=== PATIENT | female | born 1975 | race Asian ===

== ENCOUNTER 2016-09-22 16:51 | Emergency (ER) | payer MEDICAID ==
[~2016-09-22] VITALS: Ht 152.4 cm; Wt 71.6 kg
[~2016-09-22 16:51] MED LIST: ARIP10TA13 PO; OXYC-302 PO
[2016-09-22 18:15] LABS: ASPARTATE AMINO TRANSFERASE 13 U/L (15-37); BLOOD UREA NITROGEN 7 mg/dL (7-18)
[2016-09-22] MEDS ORDERED: MIRT7.5T8 PO (18:15)
[2016-09-22] MEDS ORDERED: TRAZ100T15 PO (18:15)
[2016-09-22] MEDS ORDERED: KETOROLAC 30 MG/1 ML ONE (21:19)
[2016-09-22 21:23] VITALS: BP 120/70
[2016-09-22] MEDS ORDERED: KETOROLAC 30 MG/1 ML IM ONE (21:30)
== END 2016-09-22 21:51 | disposition home or self-care (01) ==
LOC: ED 21:03
DX: N30.01 Acute cystitis with hematuria (principal); R31.29 Other microscopic hematuria; G43.909 Migraine, unspecified, not intractable, without status migrainosus; R73.9 Hyperglycemia, unspecified; Z90.49 Acquired absence of other specified parts of digestive tract; Z90.710 Acquired absence of both cervix and uterus
CPT/HCPCS: 36415; 76830; 80053; 81001; 85025; 87086; 96372; 99285; J1885

== ENCOUNTER 2016-12-22 17:20 | Emergency (ER) | payer MEDICAID ==
[~2016-12-22] VITALS: Ht 152.4 cm; Wt 69.0 kg
[~2016-12-22 17:20] MED LIST changes: +MIRT7.5T8 PO; +TRAZ100T15 PO
[2016-12-22 17:25] VITALS: BP 137/92
[2016-12-22] MEDS ORDERED: FLUORESCEIN OPHTHALMIC 1 MG STRIP EACHEYE ONE (17:30)
[2016-12-22] MEDS ORDERED: PLEASE ENTER HEIGHT AND WEIGHT MC SCH (17:30)
[2016-12-22] MEDS ORDERED: PROPARACAINE OPHTH 0.5%, 15ML EACHEYE ONE (17:30)
[2016-12-22] MEDS ORDERED: PROPARACAINE OPHTH 0.5%, 15ML ONE (17:40)
[2016-12-22] MEDS ORDERED: FLUORESCEIN OPHTHALMIC 1 MG STRIP ONE (17:40)
== END 2016-12-22 18:26 | disposition home or self-care (01) ==
LOC: ED 18:20
DX: H10.231 Serous conjunctivitis, except viral, right eye (principal); S05.01XA Injury of conjunctiva and corneal abrasion without foreign body, right eye, initial encounter; X58.XXXA Exposure to other specified factors, initial encounter; Y93.89 Activity, other specified; Y99.8 Other external cause status; Y92.89 Other specified places as the place of occurrence of the external cause
CPT/HCPCS: 99283

== ENCOUNTER 2017-08-12 18:53 | Emergency (ER) | payer MEDICAID, OTHER ==
[~2017-08-12] VITALS: Ht 152.4 cm; Wt 74.3 kg
[~2017-08-12 18:53] MED LIST changes: -ARIP10TA13 PO; +ARIP10TA33 PO
[2017-08-12 18:59] VITALS: BP 131/86
[2017-08-12] MEDS ORDERED: IBUPROFEN 200 MG TABLET ONE (19:49)
[2017-08-12] MEDS ORDERED: IBUPROFEN 200 MG TABLET PO ONE (20:00)
[2017-08-12 20:14] LABS: MICROSCOPIC INDICATED
[2017-08-12 20:23] LABS: CULTURE INDICATED? NO
== END 2017-08-12 21:40 | disposition home or self-care (01) ==
LOC: ED 21:06
DX: R10.2 Pelvic and perineal pain (principal); J02.9 Acute pharyngitis, unspecified; R73.9 Hyperglycemia, unspecified; Z90.710 Acquired absence of both cervix and uterus; Z90.721 Acquired absence of ovaries, unilateral
CPT/HCPCS: 76830; 81001; 99285

== ENCOUNTER 2017-10-14 01:23 | Emergency (ER) | payer OTHER ==
[~2017-10-14] VITALS: Ht 152.4 cm; Wt 73.1 kg
[2017-10-14] MEDS ORDERED: PROCHLORPERAZINE 5 MG/ML, 2ML ONE (02:17)
[2017-10-14] MEDS ORDERED: DIPHENHYDRAMINE 50 MG/ML, 1ML ONE (02:17)
[2017-10-14] MEDS ORDERED: DIPHENHYDRAMINE 50 MG/ML, 1ML IVPush ONE (02:30)
[2017-10-14] MEDS ORDERED: SODIUM CHLORIDE 0.9% 1,000ML IVBOLUS ONE (02:30)
[2017-10-14] MEDS ORDERED: SODIUM CHLORIDE FLUSH 10ML SYR IVF ONE (02:30)
[2017-10-14] MEDS ORDERED: PROCHLORPERAZINE 5 MG/ML, 2ML IVPush ONE (02:30)
[2017-10-14] MEDS ORDERED: KETOROLAC 30 MG/1 ML ONE (04:23)
[2017-10-14] MEDS ORDERED: KETOROLAC 30 MG/1 ML IVPush ONE (04:30)
[2017-10-14 04:32] VITALS: BP 99/55
== END 2017-10-14 04:44 | disposition home or self-care (01) ==
LOC: ED 02:40
DX: R51 Headache (principal); R11.2 Nausea with vomiting, unspecified; R73.9 Hyperglycemia, unspecified
CPT/HCPCS: 70450; 93005; 96361; 96374; 96375; 99285; J0780; J1200; J1885; J7030

== ENCOUNTER 2017-10-18 18:25 | Emergency (ER) | payer OTHER ==
[~2017-10-18] VITALS: Ht 180.3 cm; Wt 72.8 kg
[2017-10-18 19:57] VITALS: BP 128/63
== END 2017-10-18 20:00 | disposition home or self-care (01) ==
LOC: ED 19:54
DX: R06.00 Dyspnea, unspecified (principal); R05 Cough; F32.9 Major depressive disorder, single episode, unspecified; Z90.49 Acquired absence of other specified parts of digestive tract
CPT/HCPCS: 71046; 93005; 99284

== ENCOUNTER 2017-12-19 20:24 | Emergency (ER) | payer OTHER ==
[2017-12-19] MEDS ORDERED: NITROGLYCERIN SINGLE TAB 0.4 MG SL ONE (20:49)
[2017-12-19] MEDS ORDERED: ASPIRIN 81 MG TABLET CHEW ONE (20:50)
[2017-12-19 20:55] LABS: BASOPHILS # (AUTO) 0.02 x10^3/uL (0-0.1); BASOPHILS % (AUTO) 0 % (0-1); EOSINOPHILS % (AUTO) 2 % (1-7); LYMPHOCYTES # (AUTO) 2.24 x10^3/uL (1-3.4); LYMPHOCYTES % (AUTO) 35 % (22-44); MD NO; MEAN CORPUSCULAR HEMOGLOBIN 31.6 pg (27.0-34.8); MEAN CORPUSCULAR HGB CONC 34.6 g/dL (32.4-35.8); MEAN CORPUSCULAR VOLUME 91.2 fL (80-100); MEAN PLATELET VOLUME 7.6 fL (7.4-10.4); MONOCYTES # (AUTO) 0.41 x10^3/uL (0.2-0.8); MONOCYTES % (AUTO) 7 % (2-9); NEUTROPHILS # (AUTO) 3.55 x10^3/uL (1.8-6.8); NEUTROPHILS % (AUTO) 56 % (42-75); PLATELET COUNT 255 x10^3/uL (130-400); RED BLOOD COUNT 4.56 x10^6/uL (3.82-5.3); RED CELL DISTRIBUTION WIDTH 12.2 % (9.6-15.2)
[2017-12-19] MEDS ORDERED: ASPIRIN 81 MG TABLET CHEW PO ONE (21:00)
[2017-12-19] MEDS ORDERED: PLEASE ENTER WEIGHT MC SCH (21:00)
[2017-12-19] MEDS ORDERED: SODIUM CHLORIDE FLUSH 10ML SYR IVF ONE (21:00)
[2017-12-19] MEDS ORDERED: NITROGLYCERIN SINGLE TAB 0.4 MG SL PRN (21:00)
[2017-12-19 21:04] LABS: ALANINE AMINOTRANSFERASE 32 U/L (12-78); ALBUMIN 3.7 g/dL (3.4-5.0); ANION GAP 7 mmol/L (5-15); CALCIUM 8.6 mg/dL (8.5-10.1); CHLORIDE 112 mmol/L (98-107); CREATININE 0.79 mg/dL (0.55-1.02)
[2017-12-19 21:08] LABS: INTERNATIONAL NORMALIZED RATIO 0.93 (0.93-1.1); PROTHROMBIN TIME 9.7 Seconds (9.6-11.5)
[2017-12-19 21:09] LABS: ALKALINE PHOSPHATASE 43 U/L (45-117); BILIRUBIN,TOTAL 0.5 mg/dL (0.2-1.0); TOTAL PROTEIN 7.1 g/dL (6.4-8.2); TROPONIN I < 0.015 ng/mL (0.000-0.045)
[2017-12-19 23:21] VITALS: BP 126/72
[2017-12-19 23:43] LABS: TROPONIN I < 0.015 ng/mL (0.000-0.045)
[2017-12-19] MEDS ORDERED: ACETAMINOPHEN 500 MG TABLET ONE (23:54)
[2017-12-19] MEDS ORDERED: MAALOX/HYOSCYAMINE/LIDOCAINE 45 ML BTL ONE (23:54)
[2017-12-20] MEDS ORDERED: ACETAMINOPHEN 500 MG TABLET PO ONE
[2017-12-20] MEDS ORDERED: MAALOX/HYOSCYAMINE/LIDOCAINE 45 ML BTL PO ONE
== END 2017-12-20 00:07 | disposition home or self-care (01) ==
LOC: ED 22:54
DX: R07.89 Other chest pain (principal); F32.9 Major depressive disorder, single episode, unspecified
CPT/HCPCS: 36415; 71045; 80053; 83690; 84484; 85025; 85610; 85730; 93005; 99285

== ENCOUNTER 2018-04-23 21:14 | Emergency (ER) | payer OTHER ==
[~2018-04-23] VITALS: Ht 152.4 cm; Wt 71.8 kg
[~2018-04-23 21:14] MED LIST changes: +TRAZ-137 PO; -TRAZ100T15 PO
[2018-04-23 21:18] VITALS: BP 131/70
[2018-04-23] MEDS ORDERED: MIRT7.5T8 PO (22:05)
[2018-04-23 22:24] LABS: MICROSCOPIC AUTO
[2018-04-23 22:25] LABS: BASOPHILS # (AUTO) 0.02 x10^3/uL (0-0.1); BASOPHILS % (AUTO) 0 % (0-1); EOSINOPHILS # (AUTO) 0.18 x10^3/uL (0-0.4); EOSINOPHILS % (AUTO) 3 % (1-7); LYMPHOCYTES # (AUTO) 2.31 x10^3/uL (1-3.4); LYMPHOCYTES % (AUTO) 36 % (22-44); MD NO; MEAN CORPUSCULAR HEMOGLOBIN 31.5 pg (27.0-34.8); MEAN CORPUSCULAR HGB CONC 34.6 g/dL (32.4-35.8); MEAN CORPUSCULAR VOLUME 90.8 fL (80-100); MEAN PLATELET VOLUME 7.6 fL (7.4-10.4); MONOCYTES # (AUTO) 0.41 x10^3/uL (0.2-0.8); MONOCYTES % (AUTO) 6 % (2-9); NEUTROPHILS # (AUTO) 3.57 x10^3/uL (1.8-6.8); NEUTROPHILS % (AUTO) 55 % (42-75); PLATELET COUNT 249 x10^3/uL (130-400); RED BLOOD COUNT 4.15 x10^6/uL (3.82-5.3); RED CELL DISTRIBUTION WIDTH 12.4 % (9.6-15.2)
[2018-04-23 22:27] LABS: CULTURE INDICATED? YES
[2018-04-23 22:36] LABS: ALANINE AMINOTRANSFERASE 30 U/L (12-78); ALBUMIN 3.4 g/dL (3.4-5.0); ANION GAP 7 mmol/L (5-15); CALCIUM 8.3 mg/dL (8.5-10.1); CHLORIDE 110 mmol/L (98-107); CREATININE 0.95 mg/dL (0.55-1.02)
[2018-04-23 22:38] LABS: ALKALINE PHOSPHATASE 37 U/L (45-117); BILIRUBIN,TOTAL 0.3 mg/dL (0.2-1.0); TOTAL PROTEIN 6.3 g/dL (6.4-8.2)
== END 2018-04-23 23:08 | disposition home or self-care (01) ==
LOC: ED 22:45
DX: A09 Infectious gastroenteritis and colitis, unspecified (principal); Z90.49 Acquired absence of other specified parts of digestive tract; Z90.710 Acquired absence of both cervix and uterus; F32.9 Major depressive disorder, single episode, unspecified
CPT/HCPCS: 36415; 76830; 80053; 81001; 83690; 85025; 87086; 99284

== ENCOUNTER 2018-08-07 19:47 | Emergency (ER) | payer OTHER ==
[~2018-08-07] VITALS: Ht 152.4 cm; Wt 69.1 kg
[2018-08-07 21:32] LABS: BASOPHILS # (AUTO) 0.03 x10^3/uL (0-0.1); BASOPHILS % (AUTO) 0 % (0-1); EOSINOPHILS # (AUTO) 0.03 x10^3/uL (0-0.4); EOSINOPHILS % (AUTO) 1 % (1-7); LYMPHOCYTES # (AUTO) 2.22 x10^3/uL (1-3.4); LYMPHOCYTES % (AUTO) 35 % (22-44); MD NO; MEAN CORPUSCULAR HGB CONC 34.6 g/dL (32.4-35.8); MEAN CORPUSCULAR VOLUME 89.7 fL (80-100); MEAN PLATELET VOLUME 7.3 fL (7.4-10.4); MONOCYTES # (AUTO) 0.29 x10^3/uL (0.2-0.8); MONOCYTES % (AUTO) 5 % (2-9); NEUTROPHILS # (AUTO) 3.71 x10^3/uL (1.8-6.8); NEUTROPHILS % (AUTO) 59 % (42-75); PLATELET COUNT 282 x10^3/uL (130-400); RED BLOOD COUNT 4.54 x10^6/uL (3.82-5.3); RED CELL DISTRIBUTION WIDTH 12.4 % (9.6-15.2)
[2018-08-07 21:44] LABS: ALANINE AMINOTRANSFERASE 26 U/L (12-78); ALBUMIN 3.9 g/dL (3.4-5.0); ANION GAP 7 mmol/L (5-15); CALCIUM 8.4 mg/dL (8.5-10.1); CHLORIDE 111 mmol/L (98-107); CREATININE 0.72 mg/dL (0.55-1.02)
[2018-08-07 21:46] LABS: ALKALINE PHOSPHATASE 36 U/L (45-117); BILIRUBIN,TOTAL 0.7 mg/dL (0.2-1.0)
--- NOTE | 2018-08-08 00:05 | NUR ---
pt to room from lobby
[2018-08-08] MEDS ORDERED: MECLIZINE CHEWABLE 25 MG TAB ONE (00:21)
[2018-08-08] MEDS ORDERED: ONDANSETRON ODT 4 MG ONE (00:21)
[2018-08-08] MEDS ORDERED: ONDANSETRON ODT 4 MG PO ONE (00:30)
[2018-08-08] MEDS ORDERED: MECLIZINE CHEWABLE 25 MG TAB PO ONE (00:30)
--- NOTE | 2018-08-08 00:45 | NUR ---
BREAK RN: PT MEDICATED WITH ORDERED MEDS. PT RESTING CALMLY IN BED AT THIS TIME. BP CUFF APPLIED. CALL LIGHT WITHIN REACH.
--- NOTE | 2018-08-08 00:58 | NUR ---
ASSUMED CARE OF PATIENT. REPORT GIVEN FROM CHERISE DRUMMOND
[2018-08-08 01:21] VITALS: BP 120/78
== END 2018-08-08 01:26 | disposition home or self-care (01) ==
LOC: ED 23:59
DX: R42 Dizziness and giddiness (principal); R11.2 Nausea with vomiting, unspecified; F32.9 Major depressive disorder, single episode, unspecified
CPT/HCPCS: 36415; 80053; 83690; 85025; 93005; 99284; Q0162

== ENCOUNTER 2018-09-08 16:34 | Emergency (ER) | payer OTHER ==
[~2018-09-08] VITALS: Ht 152.4 cm; Wt 69.0 kg
--- NOTE | 2018-09-08 16:55 | NUR ---
CONTACT WITH PT, LAB IN TO DRAW BLOOD. PT AMB TO BR, GAIT STEADY, TO ATTEMPT TO PROVIDE URINE SPECIMAN.
--- NOTE | 2018-09-08 17:04 | NUR ---
PT RETURN TO ROOM, 43 YR OLD FEMALE HERE WITH C/O "ABD PAIN, RIGHT SIDE LOWER. BEGAN ON TUESDAY" DENIES N/V/D.
[2018-09-08 17:06] LABS: BASOPHILS # (AUTO) 0.02 x10^3/uL (0-0.1); BASOPHILS % (AUTO) 0 % (0-1); EOSINOPHILS # (AUTO) 0.05 x10^3/uL (0-0.4); EOSINOPHILS % (AUTO) 1 % (1-7); LYMPHOCYTES # (AUTO) 1.82 x10^3/uL (1-3.4); LYMPHOCYTES % (AUTO) 35 % (22-44); MD NO; MEAN CORPUSCULAR HEMOGLOBIN 31.2 pg (27.0-34.8); MEAN CORPUSCULAR HGB CONC 34.7 g/dL (32.4-35.8); MEAN CORPUSCULAR VOLUME 89.8 fL (80-100); MEAN PLATELET VOLUME 7.7 fL (7.4-10.4); MONOCYTES # (AUTO) 0.26 x10^3/uL (0.2-0.8); MONOCYTES % (AUTO) 5 % (2-9); NEUTROPHILS # (AUTO) 3.07 x10^3/uL (1.8-6.8); NEUTROPHILS % (AUTO) 59 % (42-75); PLATELET COUNT 247 x10^3/uL (130-400); RED BLOOD COUNT 4.35 x10^6/uL (3.82-5.3); RED CELL DISTRIBUTION WIDTH 12.3 % (9.6-15.2)
[2018-09-08 17:08] VITALS: BP_DIAS 68
--- NOTE | 2018-09-08 17:11 | NUR ---
PT UPDATED ON POC. UNDERSTANDING VERBALIZED. NO NEEDS EXPRESSED AT THIS TIME.
[2018-09-08 17:12] LABS: ALANINE AMINOTRANSFERASE 26 U/L (12-78); ALBUMIN 3.7 g/dL (3.4-5.0); ANION GAP 5 mmol/L (5-15); CALCIUM 8.2 mg/dL (8.5-10.1); CHLORIDE 113 mmol/L (98-107); CREATININE 0.79 mg/dL (0.55-1.02)
[2018-09-08 17:14] LABS: ALKALINE PHOSPHATASE 36 U/L (45-117); BILIRUBIN,TOTAL 0.7 mg/dL (0.2-1.0); TOTAL PROTEIN 6.6 g/dL (6.4-8.2)
[2018-09-08 17:21] LABS: MICROSCOPIC AUTO
[2018-09-08 17:22] LABS: CULTURE INDICATED? NO
--- NOTE | 2018-09-08 17:56 | NUR ---
PT IN RADIOLOGY.
[2018-09-08] MEDS ORDERED: CIPROFLOXACIN OPHTH SOLN 0.3%, 5ML LEFTEYE ONE (18:00)
--- NOTE | 2018-09-08 18:01 | NUR ---
PT RETURN FROM RADIOLOGY. NO CHANGE IN CONDITION NOTED. WAITING FOR TEST RESULTS. NO NEEDS EXPRESSED AT THIS TIME.
[2018-09-08 18:02] VITALS: BP_SYST 120
--- NOTE | 2018-09-08 18:49 | NUR ---
REPORT TO FLORINA LUONG
== END 2018-09-08 19:03 | disposition home or self-care (01) ==
LOC: ED 17:19
DX: R10.31 Right lower quadrant pain (principal); F32.9 Major depressive disorder, single episode, unspecified; Z90.710 Acquired absence of both cervix and uterus; Z90.89 Acquired absence of other organs; Z90.721 Acquired absence of ovaries, unilateral
CPT/HCPCS: 36415; 74176; 80053; 81001; 85025; 99284

== ENCOUNTER 2019-05-20 21:40 | Emergency (ER) | payer OTHER ==
[~2019-05-20] VITALS: Ht 154.9 cm; Wt 71.6 kg
[2019-05-20 22:30] LABS: BASOPHILS # (AUTO) 0.02 x10^3/uL (0-0.1); BASOPHILS % (AUTO) 0 % (0-1); EOSINOPHILS % (AUTO) 2 % (1-7); LYMPHOCYTES # (AUTO) 1.96 x10^3/uL (1-3.4); LYMPHOCYTES % (AUTO) 31 % (22-44); MD NO; MEAN CORPUSCULAR HEMOGLOBIN 31.9 pg (27.0-34.8); MEAN CORPUSCULAR HGB CONC 33.6 g/dL (32.4-35.8); MEAN PLATELET VOLUME 7.4 fL (7.4-10.4); MONOCYTES # (AUTO) 0.56 x10^3/uL (0.2-0.8); MONOCYTES % (AUTO) 9 % (2-9); NEUTROPHILS # (AUTO) 3.63 x10^3/uL (1.8-6.8); NEUTROPHILS % (AUTO) 58 % (42-75); PLATELET COUNT 260 x10^3/uL (130-400); RED BLOOD COUNT 4.28 x10^6/uL (3.82-5.3); RED CELL DISTRIBUTION WIDTH 12.7 % (9.6-15.2)
--- NOTE | 2019-05-20 22:40 | NUR ---
THIS IS A 44 YO FEMALE COMING IN FOR SOB AND "WEAK AND TINGLY IN MY MEGS" STARTING AT 5PM TODAY. PATIENT DENIES CP, BUT STATES "WITH DEEP BREATHING IT KIND OF PINCHES". PATIENT DENIES MEDICAL HX. EKG DONE IN TRIAGE. PATIENT SPEAKING IN FULL SENTENCES, DOES NOT APPEAR IN ACUTE DISTRESS, SKIN NORMAL COLOR FOR ETHNICITY. PLACED ON HAIRCUTTER, NSR NOTED, CONTINUOUS SPO2 AT 97%, CYCLE BP Q HR. APPEARS TO BE HYPERTENSIVE. CALL LIGHT IN REACH, DENIES NEEDS AT THIS TIME.
[2019-05-20 22:45] LABS: ALBUMIN 3.5 g/dL (3.4-5.0); ANION GAP 7 mmol/L (5-15); CALCIUM 8.1 mg/dL (8.5-10.1); CHLORIDE 111 mmol/L (98-107)
[2019-05-20 22:51] LABS: TROPONIN I < 0.015 ng/mL (0.000-0.045)
--- NOTE | 2019-05-20 22:53 | NUR ---
PATIENT RESTING ON GURNEY, RESPIRATIONS EVEN AND UNLABORED. VSS, NAD, FAMILY IN ROOM. CALL LIGHT IN REACH, DENIES NEEDS AT THIS TIME.
[2019-05-20 22:57] VITALS: BP 156/95
== END 2019-05-21 00:01 | disposition home or self-care (01) ==
LOC: ED 22:23
DX: R42 Dizziness and giddiness (principal); R53.1 Weakness; R06.00 Dyspnea, unspecified; R20.2 Paresthesia of skin; Z90.89 Acquired absence of other organs; Z90.710 Acquired absence of both cervix and uterus; Z90.721 Acquired absence of ovaries, unilateral
CPT/HCPCS: 36415; 71045; 80048; 82040; 83735; 84443; 84484; 84703; 85025; 93005; 99284

== ENCOUNTER 2019-05-21 20:51 | Emergency (ER) | payer SELFPAY ==
[~2019-05-21] VITALS: Ht 152.4 cm; Wt 71.7 kg
[2019-05-21 22:17] LABS: BASOPHILS # (AUTO) 0.02 x10^3/uL (0-0.1); BASOPHILS % (AUTO) 1 % (0-1); EOSINOPHILS # (AUTO) 0.07 x10^3/uL (0-0.4); EOSINOPHILS % (AUTO) 1 % (1-7); LYMPHOCYTES % (AUTO) 40 % (22-44); MD NO; MEAN CORPUSCULAR HEMOGLOBIN 32.1 pg (27.0-34.8); MEAN CORPUSCULAR HGB CONC 34.1 g/dL (32.4-35.8); MEAN CORPUSCULAR VOLUME 94.3 fL (80-100); MEAN PLATELET VOLUME 7.4 fL (7.4-10.4); MONOCYTES # (AUTO) 0.35 x10^3/uL (0.2-0.8); MONOCYTES % (AUTO) 7 % (2-9); NEUTROPHILS # (AUTO) 2.44 x10^3/uL (1.8-6.8); NEUTROPHILS % (AUTO) 51 % (42-75); PLATELET COUNT 261 x10^3/uL (130-400); RED BLOOD COUNT 4.15 x10^6/uL (3.82-5.3); RED CELL DISTRIBUTION WIDTH 12.3 % (9.6-15.2)
[2019-05-21 22:26] LABS: ALBUMIN 3.4 g/dL (3.4-5.0); ANION GAP 8 mmol/L (5-15); CHLORIDE 111 mmol/L (98-107); CREATININE 1.01 mg/dL (0.55-1.02)
[2019-05-21] MEDS ORDERED: CALCIUM CARBONATE 500 MG TAB.CHEW PO ONE (23:00)
[2019-05-21] MEDS ORDERED: CALCIUM CARBONATE 500 MG TAB.CHEW ONE (23:07)
[2019-05-21 23:23] VITALS: BP 136/78
== END 2019-05-21 23:41 | disposition home or self-care (01) ==
LOC: ED 23:05
DX: E83.51 Hypocalcemia (principal); R20.2 Paresthesia of skin; Z90.710 Acquired absence of both cervix and uterus; Z90.721 Acquired absence of ovaries, unilateral; Z90.49 Acquired absence of other specified parts of digestive tract
CPT/HCPCS: 36415; 80048; 82040; 84436; 84443; 85025; 93005; 99284

== ENCOUNTER 2019-07-02 15:11 | Emergency (ER) | payer OTHER ==
[~2019-07-02] VITALS: Ht 152.4 cm; Wt 72.6 kg
[2019-07-02] MEDS ORDERED: SODIUM CHLORIDE FLUSH 10ML SYR IVF ONE (16:00)
--- NOTE | 2019-07-02 18:26 | NUR ---
RECHECK VSS STABLE AT 182
--- NOTE | 2019-07-02 18:51 | NUR ---
pt to room from lobby
--- NOTE | 2019-07-02 19:11 | NUR ---
ASSUMED CARE OF PATIENT. PATIENT REPORTS BILATERAL ABD PAIN AND FLANK PAIN. PT ALSO REPORTS SHE WAS URINATING PINK TWO DAYS AGO. FAMILY AT BEDSIDE. CALL LIGHT IN PLACE. WILL CONTINUE TO MONITOR.
[2019-07-02 19:19] LABS: CULTURE INDICATED? YES; MICROSCOPIC INDICATED
--- NOTE | 2019-07-02 19:49 | NUR ---
PT RESTING IN ROOM. VS STABLE. CALL LIGHT IN PLACE. WILL CONTINUE TO MONITOR.
[2019-07-02] MEDS ORDERED: MORPHINE SULFATE 4 MG/ML, 1ML ONE (19:56)
[2019-07-02] MEDS ORDERED: ONDANSETRON 2MG/ML, 2ML ONE (19:56)
[2019-07-02] MEDS ORDERED: MORPHINE SULFATE 4 MG/ML, 1ML IVPush ONE (20:00)
[2019-07-02] MEDS ORDERED: ONDANSETRON 2MG/ML, 2ML IVPush ONE (20:00)
--- NOTE | 2019-07-02 20:03 | NUR ---
BRENT RN ASSISTING PRIMARY CHERISE MALONE WITH MEDICATION ADMIN ONLY. PT MEDICATED NOTED PER MD ORDER IN [facility] FOR 03/08 "RIGHT OVARY AND LOW BACK PAIN." PT RESTING IN POSITION OF COMFORT. DENIES NEED TO USE RESTROOM. FAMILY AT BEDSIDE. CALL LIGHT IN REACH. VSS. AWAITING CT. REPORT AND CARE BACK TO PRIMARY CHERISE MALONE.
--- NOTE | 2019-07-02 20:44 | NUR ---
pt resting in room. no acute distress noted. will continue to monitor.
[2019-07-02 20:56] LABS: BASOPHILS # (AUTO) 0.01 x10^3/uL (0-0.1); BASOPHILS % (AUTO) 0 % (0-1); EOSINOPHILS # (AUTO) 0.05 x10^3/uL (0-0.4); EOSINOPHILS % (AUTO) 1 % (1-7); LYMPHOCYTES # (AUTO) 1.77 x10^3/uL (1-3.4); LYMPHOCYTES % (AUTO) 28 % (22-44); MD NO; MEAN CORPUSCULAR HEMOGLOBIN 31.4 pg (27.0-34.8); MEAN CORPUSCULAR HGB CONC 34.1 g/dL (32.4-35.8); MEAN CORPUSCULAR VOLUME 92.1 fL (80-100); MEAN PLATELET VOLUME 7.6 fL (7.4-10.4); MONOCYTES # (AUTO) 0.47 x10^3/uL (0.2-0.8); MONOCYTES % (AUTO) 7 % (2-9); NEUTROPHILS # (AUTO) 4.12 x10^3/uL (1.8-6.8); NEUTROPHILS % (AUTO) 64 % (42-75); PLATELET COUNT 262 x10^3/uL (130-400); RED BLOOD COUNT 4.34 x10^6/uL (3.82-5.3); RED CELL DISTRIBUTION WIDTH 12.5 % (9.6-15.2)
[2019-07-02 21:02] LABS: ALBUMIN 3.5 g/dL (3.4-5.0); ANION GAP 7 mmol/L (5-15); CALCIUM 8.1 mg/dL (8.5-10.1); CHLORIDE 110 mmol/L (98-107); CREATININE 0.68 mg/dL (0.55-1.02)
--- NOTE | 2019-07-02 21:14 | NUR ---
REPORT RECEIVED, POC DISCUSSED, CARE ASSUMED.
--- NOTE | 2019-07-02 21:18 | NUR ---
PT UP FOR RE-EVALUATION.
[2019-07-02 21:51] VITALS: BP 134/88
--- NOTE | 2019-07-02 21:51 | NUR ---
PT DC'D HOME WITH RX X 2 AND UNDERSTANDING OF INSTRUCTIONS. PT AND FAMILY MEMBER TO DC DESK, PT GAIT STEADY.
== END 2019-07-02 21:54 | disposition home or self-care (01) ==
LOC: ED 21:47
DX: N30.01 Acute cystitis with hematuria (principal); R10.31 Right lower quadrant pain; R11.0 Nausea; G43.909 Migraine, unspecified, not intractable, without status migrainosus; Z90.49 Acquired absence of other specified parts of digestive tract; Z90.710 Acquired absence of both cervix and uterus
CPT/HCPCS: 36415; 74176; 80048; 81001; 81025; 82040; 85025; 87077; 87086; 96374; 96375; 99284; J2270; J2405; 87186

== ENCOUNTER 2019-11-25 16:41 | Emergency (ER) | payer OTHER, SELFPAY ==
[~2019-11-25] VITALS: Ht 152.4 cm; Wt 78.6 kg
[~2019-11-25 16:41] MED LIST changes: -TRAZ-137 PO; +TRAZ-175 PO
--- NOTE | 2019-11-25 17:13 | NUR ---
IN ROOM FOR ED EVAL.
[2019-11-25] MEDS ORDERED: ACETAMINOPHEN 500 MG TABLET PO ONE (17:30)
[2019-11-25 17:46] LABS: BASOPHILS # (AUTO) 0.02 x10^3/uL (0-0.1); BASOPHILS % (AUTO) 0 % (0-1); EOSINOPHILS % (AUTO) 0 % (1-7); LYMPHOCYTES # (AUTO) 0.74 x10^3/uL (1-3.4); LYMPHOCYTES % (AUTO) 18 % (22-44); MD NO; MEAN CORPUSCULAR HEMOGLOBIN 31.2 pg (27.0-34.8); MEAN CORPUSCULAR HGB CONC 34.6 g/dL (32.4-35.8); MEAN PLATELET VOLUME 7.5 fL (7.4-10.4); MONOCYTES # (AUTO) 0.39 x10^3/uL (0.2-0.8); MONOCYTES % (AUTO) 9 % (2-9); NEUTROPHILS # (AUTO) 3.06 x10^3/uL (1.8-6.8); NEUTROPHILS % (AUTO) 73 % (42-75); PLATELET COUNT 207 x10^3/uL (130-400); RED BLOOD COUNT 4.52 x10^6/uL (3.82-5.3); RED CELL DISTRIBUTION WIDTH 12.2 % (9.6-15.2)
[2019-11-25] MEDS ORDERED: ACETAMINOPHEN 500 MG TABLET ONE (17:54)
[2019-11-25 17:55] LABS: ALANINE AMINOTRANSFERASE 49 U/L (12-78); ANION GAP 8 mmol/L (5-15); CALCIUM 7.9 mg/dL (8.5-10.1); CHLORIDE 109 mmol/L (98-107); CREATININE 0.69 mg/dL (0.55-1.02)
[2019-11-25 18:00] LABS: ALKALINE PHOSPHATASE 51 U/L (45-117); BILIRUBIN,TOTAL 0.5 mg/dL (0.2-1.0); TROPONIN I < 0.015 ng/mL (0.000-0.045)
--- NOTE | 2019-11-25 18:04 | NUR ---
ALL TESTS RESULTED. PT IS UP FOR RECHECK AT THIS TIME.
[2019-11-25] MEDS ORDERED: POTASSIUM CHLORIDE 20 MEQ TAB.ER.PRT ONE (18:24)
--- NOTE | 2019-11-25 18:25 | NUR ---
RAD IN ROOM.
[2019-11-25 18:28] VITALS: BP 125/81
[2019-11-25] MEDS ORDERED: POTASSIUM CHLORIDE 20 MEQ TAB.ER.PRT PO ONE (18:30)
--- NOTE | 2019-11-25 18:45 | NUR ---
ALL TESTS RESULTED. PT IS UP FOR RECHECK AT THIS TIME.
--- NOTE | 2019-11-25 19:05 | NUR ---
Report received from CHERISE Urbina. This RN to assume care. Patient to be discharged.
== END 2019-11-25 19:28 ==
LOC: ED 17:30
DX: U07.1 COVID-19 (principal); J15.9 Unspecified bacterial pneumonia; R00.0 Tachycardia, unspecified; R07.89 Other chest pain; Z90.89 Acquired absence of other organs; Z90.710 Acquired absence of both cervix and uterus; Z90.722 Acquired absence of ovaries, bilateral
CPT/HCPCS: 36415; 71045; 80053; 83880; 84484; 85025; 85379; 93005; 99285; U0001

== ENCOUNTER 2020-03-12 21:15 | Emergency (ER) | payer SELFPAY ==
[~2020-03-12] VITALS: Ht 152.4 cm; Wt 73.8 kg
[2020-03-12] MEDS ORDERED: FAMOTIDINE 10 MG TAB ONE (21:51)
[2020-03-12] MEDS ORDERED: MAALOX/HYOSCYAMINE/LIDOCAINE 45 ML BTL ONE (21:52)
[2020-03-12] MEDS ORDERED: ONDANSETRON ODT 4 MG ONE (21:52)
[2020-03-12] MEDS ORDERED: FAMOTIDINE 20 MG TABLET PO ONE (22:00)
[2020-03-12] MEDS ORDERED: ONDANSETRON ODT 4 MG PO ONE (22:00)
[2020-03-12] MEDS ORDERED: MAALOX/HYOSCYAMINE/LIDOCAINE 45 ML BTL PO ONE (22:00)
[2020-03-12 22:01] VITALS: BP 168/106
[2020-03-12 22:04] LABS: BASOPHILS % (AUTO) 1 % (0-1); EOSINOPHILS % (AUTO) 2 % (1-7); LYMPHOCYTES % (AUTO) 44 % (22-44); MEAN CORPUSCULAR HEMOGLOBIN 30.8 pg (27.0-34.8); MEAN CORPUSCULAR HGB CONC 34.5 g/dL (32.4-35.8); MEAN PLATELET VOLUME 7.3 fL (7.4-10.4); MONOCYTES % (AUTO) 6 % (2-9); NEUTROPHILS % (AUTO) 47 % (42-75); PLATELET COUNT 265 x10^3/uL (130-400); RED CELL DISTRIBUTION WIDTH 12.5 % (9.6-15.2)
[2020-03-12 22:05] LABS: MD NO
[2020-03-12 22:18] LABS: ALANINE AMINOTRANSFERASE 39 U/L (12-78); ALBUMIN 3.6 g/dL (3.4-5.0); ANION GAP 7 mmol/L (5-15); CALCIUM 8.4 mg/dL (8.5-10.1); CHLORIDE 109 mmol/L (98-107); CREATININE 1.04 mg/dL (0.55-1.02)
[2020-03-12 22:22] LABS: ALKALINE PHOSPHATASE 47 U/L (45-117); BILIRUBIN,TOTAL 0.5 mg/dL (0.2-1.0); TOTAL PROTEIN 6.7 g/dL (6.4-8.2)
== END 2020-03-12 23:14 | disposition home or self-care (01) ==
LOC: ED 21:55
DX: K21.00 Gastro-esophageal reflux disease with esophagitis, without bleeding (principal); K29.00 Acute gastritis without bleeding; R94.31 Abnormal electrocardiogram [ECG] [EKG]; Z90.89 Acquired absence of other organs; Z90.710 Acquired absence of both cervix and uterus; Z90.721 Acquired absence of ovaries, unilateral
CPT/HCPCS: 36415; 80053; 83690; 84703; 85025; 93005; 99284; Q0162

== ENCOUNTER 2020-08-15 16:32 | Emergency (ER) | payer SELFPAY ==
[~2020-08-15] VITALS: Ht 152.4 cm; Wt 75.8 kg
[~2020-08-15 16:32] MED LIST changes: -OXYC-302 PO; +OXYC1TAB14 PO
--- NOTE | 2020-08-15 16:53 | NUR ---
Pt reports she has had right upper quadrant abdominal pain x4 days and a migraine. Advil migraine medication not relieving headache. Denies nausea/vomitting/diarrhea.
[2020-08-15] MEDS ORDERED: KETOROLAC 30 MG/1 ML ONE (17:56)
[2020-08-15] MEDS ORDERED: PROCHLORPERAZINE 5 MG/ML, 2ML ONE (17:56)
[2020-08-15] MEDS ORDERED: DIPHENHYDRAMINE 50 MG/ML, 1ML ONE (17:56)
--- NOTE | 2020-08-15 18:10 | NUR ---
IV started, labs drawn, NS infusing.
--- NOTE | 2020-08-15 18:12 | NUR ---
Medicated per eMAR- unable to scan in meds as computer in room will not turn on.
[2020-08-15 18:13] LABS: BASOPHILS % (AUTO) 0 % (0-1); EOSINOPHILS % (AUTO) 2 % (1-7); LYMPHOCYTES % (AUTO) 38 % (22-44); MEAN CORPUSCULAR HEMOGLOBIN 30.5 pg (27.0-34.8); MEAN CORPUSCULAR HGB CONC 34.3 g/dL (32.4-35.8); MEAN PLATELET VOLUME 7.3 fL (7.4-10.4); MONOCYTES % (AUTO) 9 % (2-9); NEUTROPHILS % (AUTO) 51 % (42-75); PLATELET COUNT 257 x10^3/uL (130-400); RED BLOOD COUNT 4.39 x10^6/uL (3.82-5.3); RED CELL DISTRIBUTION WIDTH 13.1 % (9.6-15.2)
--- NOTE | 2020-08-15 18:13 | NUR ---
Pt to imaging.
[2020-08-15 18:16] LABS: MD NO
[2020-08-15 18:26] LABS: ALANINE AMINOTRANSFERASE 29 U/L (12-78); ALBUMIN 3.4 g/dL (3.4-5.0); ANION GAP 5 mmol/L (5-15); CHLORIDE 115 mmol/L (98-107); CREATININE 0.68 mg/dL (0.55-1.02)
[2020-08-15] MEDS ORDERED: SODIUM CHLORIDE 0.9% 1,000ML IVBOLUS ONE (18:30)
[2020-08-15] MEDS ORDERED: DIPHENHYDRAMINE 50 MG/ML, 1ML IVPush ONE (18:30)
[2020-08-15] MEDS ORDERED: KETOROLAC 30 MG/1 ML IVPush ONE (18:30)
[2020-08-15] MEDS ORDERED: SODIUM CHLORIDE FLUSH 10ML SYR IVF ONE (18:30)
[2020-08-15] MEDS ORDERED: PROCHLORPERAZINE 5 MG/ML, 2ML IVPush ONE (18:30)
--- NOTE | 2020-08-15 18:30 | NUR ---
Pt sleeping, snoring.
[2020-08-15 18:31] LABS: ALKALINE PHOSPHATASE 47 U/L (45-117); BILIRUBIN,TOTAL 0.4 mg/dL (0.2-1.0); TOTAL PROTEIN 6.3 g/dL (6.4-8.2)
[2020-08-15 19:06] VITALS: BP 122/70
--- NOTE | 2020-08-15 19:06 | NUR ---
Dr. Schulz at bedside. EKG done. Dr. Schulz stated UA not needed.
--- NOTE | 2020-08-15 19:08 | NUR ---
NS infusion complete.
--- NOTE | 2020-08-15 19:22 | NUR ---
IV removed, catheter intact, hemostasis achieved, dressing applied. Pt has a safe ride home. Pt agrees with and understands discharge plan and instructions.
== END 2020-08-15 19:28 | disposition home or self-care (01) ==
LOC: ED 19:15
DX: R10.11 Right upper quadrant pain (principal); G43.909 Migraine, unspecified, not intractable, without status migrainosus
CPT/HCPCS: 36415; 76700; 80053; 83690; 84703; 85025; 93005; 96361; 96374; 96375; 99285; J0780; J1200; J1885; J7030

== ENCOUNTER 2020-08-27 15:49 | Emergency (ER) | payer OTHER ==
[~2020-08-27] VITALS: Ht 152.4 cm; Wt 75.4 kg
[2020-08-27] MEDS ORDERED: ASPIRIN 81 MG TABLET CHEW ONE (16:01)
--- NOTE | 2020-08-27 16:17 | NUR ---
PT AMBULATORY TO ROOM 7 W/ C/O L SIDE CP STARTED TODAY AT 1100 WHILE PT WAS AT WORK. PT DENIES N/V W/ CP. STATES PAIN RADIATED TO BACK AND IS SHARP IN NATURE. PT DENIES ANY CARDIAC/PULM HX. PT RESTING ON GURNEY. NADN. MONITORS APPLIED. VSS. WARM BLANKET PROVIDED. PIV INITIATED.
[2020-08-27] MEDS ORDERED: ASPIRIN 81 MG TABLET CHEW PO ONE (16:30)
[2020-08-27] MEDS ORDERED: KETOROLAC 30 MG/1 ML ONE (16:47)
[2020-08-27 16:55] LABS: BASOPHILS % (AUTO) 1 % (0-1); EOSINOPHILS % (AUTO) 1 % (1-7); LYMPHOCYTES % (AUTO) 33 % (22-44); MD NO; MEAN CORPUSCULAR HEMOGLOBIN 30.7 pg (27.0-34.8); MEAN CORPUSCULAR HGB CONC 34.4 g/dL (32.4-35.8); MEAN PLATELET VOLUME 7.6 fL (7.4-10.4); MONOCYTES % (AUTO) 6 % (2-9); NEUTROPHILS % (AUTO) 60 % (42-75); PLATELET COUNT 249 x10^3/uL (130-400); RED BLOOD COUNT 4.41 x10^6/uL (3.82-5.3); RED CELL DISTRIBUTION WIDTH 12.7 % (9.6-15.2)
[2020-08-27] MEDS ORDERED: KETOROLAC 30 MG/1 ML IM ONE (17:00)
[2020-08-27 17:05] LABS: ALANINE AMINOTRANSFERASE 26 U/L (12-78); ALBUMIN 3.7 g/dL (3.4-5.0); ANION GAP 6 mmol/L (5-15); CALCIUM 8.1 mg/dL (8.5-10.1); CHLORIDE 110 mmol/L (98-107); CREATININE 0.71 mg/dL (0.55-1.02)
[2020-08-27 17:10] LABS: ALKALINE PHOSPHATASE 44 U/L (45-117); BILIRUBIN,TOTAL 0.7 mg/dL (0.2-1.0); TOTAL PROTEIN 6.4 g/dL (6.4-8.2); TROPONIN I < 0.015 ng/mL (0.000-0.045)
[2020-08-27] MEDS ORDERED: KETOROLAC 30 MG/1 ML IVPush ONE (17:30)
[2020-08-27 17:35] VITALS: BP 139/79
--- NOTE | 2020-08-27 17:35 | NUR ---
PT RESTING ON GURNEY. NADN. STEWART.
== END 2020-08-27 17:43 | disposition home or self-care (01) ==
LOC: ED 16:04
DX: R07.89 Other chest pain (principal); K21.9 Gastro-esophageal reflux disease without esophagitis; R73.9 Hyperglycemia, unspecified; E83.51 Hypocalcemia; G43.909 Migraine, unspecified, not intractable, without status migrainosus
CPT/HCPCS: 36415; 71045; 80053; 84484; 85025; 93005; 96374; 99285; J1885

== ENCOUNTER 2020-10-29 14:01 | Emergency (ER) | payer BC ==
[~2020-10-29] VITALS: Ht 152.4 cm; Wt 76.0 kg
--- NOTE | 2020-10-29 14:26 | NUR ---
PT TO RM FROM LOBBY
[2020-10-29 15:16] LABS: BASOPHILS % (AUTO) 0 % (0-1); EOSINOPHILS % (AUTO) 2 % (1-7); LYMPHOCYTES % (AUTO) 35 % (22-44); MEAN CORPUSCULAR HEMOGLOBIN 30.7 pg (27.0-34.8); MEAN CORPUSCULAR HGB CONC 34.2 g/dL (32.4-35.8); MEAN PLATELET VOLUME 7.4 fL (7.4-10.4); MONOCYTES % (AUTO) 7 % (2-9); NEUTROPHILS % (AUTO) 56 % (42-75); PLATELET COUNT 264 x10^3/uL (130-400); RED CELL DISTRIBUTION WIDTH 12.8 % (9.6-15.2)
[2020-10-29 15:17] LABS: MD NO
[2020-10-29 15:24] LABS: ALBUMIN 3.5 g/dL (3.4-5.0); ANION GAP 7 mmol/L (5-15); CALCIUM 8.9 mg/dL (8.5-10.1); CHLORIDE 110 mmol/L (98-107); CREATININE 0.77 mg/dL (0.55-1.02)
--- NOTE | 2020-10-29 15:43 | NUR ---
PT AMBULATED TO BATHROOM. STEADY GAIT
[2020-10-29 17:12] VITALS: BP 130/87
== END 2020-10-29 17:20 | disposition home or self-care (01) ==
LOC: ED 17:10
DX: R42 Dizziness and giddiness (principal); R53.83 Other fatigue; G43.909 Migraine, unspecified, not intractable, without status migrainosus; R94.31 Abnormal electrocardiogram [ECG] [EKG]; K21.9 Gastro-esophageal reflux disease without esophagitis
CPT/HCPCS: 36415; 80048; 82040; 85025; 93005; 99284

== ENCOUNTER 2021-01-26 22:52 | Emergency (ER) | payer BC ==
[~2021-01-26] VITALS: Ht 152.4 cm; Wt 76.2 kg
[~2021-01-26 22:52] MED LIST changes: +OXYC1TAB12 PO; -OXYC1TAB14 PO
[2021-01-26 23:16] VITALS: BP 127/91
[2021-01-27 00:10] LABS: BASOPHILS % (AUTO) 1 % (0-1); EOSINOPHILS % (AUTO) 3 % (1-7); LYMPHOCYTES % (AUTO) 46 % (22-44); MEAN CORPUSCULAR HEMOGLOBIN 30.7 pg (27.0-34.8); MEAN CORPUSCULAR HGB CONC 34.8 g/dL (32.4-35.8); MEAN PLATELET VOLUME 7.4 fL (7.4-10.4); MONOCYTES % (AUTO) 8 % (2-9); NEUTROPHILS % (AUTO) 43 % (42-75); PLATELET COUNT 283 x10^3/uL (130-400); RED BLOOD COUNT 4.58 x10^6/uL (3.82-5.3); RED CELL DISTRIBUTION WIDTH 12.9 % (9.6-15.2)
[2021-01-27 00:20] LABS: ALBUMIN 3.2 g/dL (3.4-5.0); ANION GAP 6 mmol/L (5-15); CALCIUM 8.4 mg/dL (8.5-10.1); CHLORIDE 108 mmol/L (98-107)
[2021-01-27 00:24] LABS: ALANINE AMINOTRANSFERASE 29 U/L (12-78); ALKALINE PHOSPHATASE 50 U/L (45-117); BILIRUBIN,TOTAL 0.4 mg/dL (0.2-1.0); CREATININE 0.97 mg/dL (0.55-1.02); TOTAL PROTEIN 6.7 g/dL (6.4-8.2)
--- NOTE | 2021-01-27 02:54 | NUR ---
NIL X 1
--- NOTE | 2021-01-27 03:22 | NUR ---
NIL X 2
--- NOTE | 2021-01-27 03:32 | NUR ---
NIL X 3
[2021-01-27] MEDS ORDERED: NEOSPORIN OINT. PKT 1 PACKET ONE (04:19)
== END 2021-01-27 03:38 | disposition left against medical advice (07) ==
LOC: ED 23:30
DX: R10.12 Left upper quadrant pain (principal)
CPT/HCPCS: 36415; 80053; 83690; 85025; 93005; 99284

== ENCOUNTER 2021-02-03 17:48 | Emergency (ER) | payer BC ==
[~2021-02-03] VITALS: Ht 152.4 cm; Wt 75.9 kg
[2021-02-03 18:46] VITALS: BP 139/65
[2021-02-03 19:34] LABS: BASOPHILS % (AUTO) 0 % (0-1); EOSINOPHILS % (AUTO) 3 % (1-7); LYMPHOCYTES % (AUTO) 44 % (22-44); MEAN CORPUSCULAR HEMOGLOBIN 30.1 pg (27.0-34.8); MEAN CORPUSCULAR HGB CONC 34.3 g/dL (32.4-35.8); MEAN PLATELET VOLUME 7.3 fL (7.4-10.4); MONOCYTES % (AUTO) 7 % (2-9); NEUTROPHILS % (AUTO) 47 % (42-75); PLATELET COUNT 278 x10^3/uL (130-400); RED BLOOD COUNT 4.67 x10^6/uL (3.82-5.3); RED CELL DISTRIBUTION WIDTH 12.7 % (9.6-15.2)
[2021-02-03 19:46] LABS: ALBUMIN 3.3 g/dL (3.4-5.0); ANION GAP 4 mmol/L (5-15); CALCIUM 8.5 mg/dL (8.5-10.1); CHLORIDE 109 mmol/L (98-107)
[2021-02-03 19:50] LABS: ALANINE AMINOTRANSFERASE 31 U/L (12-78); ALKALINE PHOSPHATASE 46 U/L (45-117); BILIRUBIN,TOTAL 0.5 mg/dL (0.2-1.0); CREATININE 0.77 mg/dL (0.55-1.02); TOTAL PROTEIN 6.7 g/dL (6.4-8.2)
[2021-02-03 20:15] LABS: MICROSCOPIC AUTO
--- NOTE | 2021-02-03 20:15 | NUR ---
long winder tender: patient to room from lobby.
--- NOTE | 2021-02-03 20:21 | NUR ---
Pt resting in no acute distress. Pending Urine results. Pt is pleasant, alert and oriented x4.
[2021-02-03] MEDS ORDERED: KETOROLAC 60 MG/2 ML ONE (20:43)
[2021-02-03] MEDS ORDERED: HYDROcodone/APAP 5/325 TABLET ONE (20:44)
--- NOTE | 2021-02-03 20:56 | NUR ---
PT GIVEN PAIN MEDS, TOLERATED WELL. AWAITING CT SCAN. IN NO DISTRESS, DENIES FURTHER NEEDS.
[2021-02-03] MEDS ORDERED: KETOROLAC 30 MG/1 ML IM ONE (21:00)
[2021-02-03] MEDS ORDERED: HYDROcodone/APAP 5/325 TABLET PO ONE (21:00)
--- NOTE | 2021-02-03 21:11 | NUR ---
BACK FROM CT. RESULTS PENDING.
--- NOTE | 2021-02-03 21:33 | NUR ---
Patient/Caregiver given discharge instructions and they have confirmed that they understand the instructions. Patient ambulatory with steady gait. NAD, all questions answered appropriately, denies additional needs at this time. No personal belongings left in room after discharge.
== END 2021-02-03 21:34 | disposition home or self-care (01) ==
LOC: ED 18:00
DX: S39.012A Strain of muscle, fascia and tendon of lower back, initial encounter (principal); X58.XXXA Exposure to other specified factors, initial encounter; Y93.89 Activity, other specified; Y92.89 Other specified places as the place of occurrence of the external cause; Y99.8 Other external cause status; K21.9 Gastro-esophageal reflux disease without esophagitis
CPT/HCPCS: 36415; 72110; 74176; 80053; 81001; 85025; 96372; 99285; J1885

== ENCOUNTER 2021-02-19 22:23 | Emergency (ER) | payer BC ==
[~2021-02-19] VITALS: Ht 152.4 cm; Wt 76.2 kg
[2021-02-19 23:32] LABS: BASOPHILS % (AUTO) 0 % (0-1); EOSINOPHILS % (AUTO) 3 % (1-7); LYMPHOCYTES % (AUTO) 49 % (22-44); MEAN CORPUSCULAR HEMOGLOBIN 31.1 pg (27.0-34.8); MEAN CORPUSCULAR HGB CONC 35.1 g/dL (32.4-35.8); MEAN PLATELET VOLUME 7.7 fL (7.4-10.4); MONOCYTES % (AUTO) 8 % (2-9); NEUTROPHILS % (AUTO) 40 % (42-75); PLATELET COUNT 264 x10^3/uL (130-400); RED BLOOD COUNT 4.47 x10^6/uL (3.82-5.3); RED CELL DISTRIBUTION WIDTH 12.8 % (9.6-15.2)
[2021-02-19 23:37] LABS: CHLORIDE 106 mmol/L (98-107)
[2021-02-19 23:43] LABS: ALANINE AMINOTRANSFERASE 33 U/L (12-78); ALBUMIN 3.3 g/dL (3.4-5.0); ALKALINE PHOSPHATASE 44 U/L (45-117); ANION GAP 6 mmol/L (5-15); BILIRUBIN,TOTAL 0.4 mg/dL (0.2-1.0); CREATININE 0.86 mg/dL (0.55-1.02); TOTAL PROTEIN 6.8 g/dL (6.4-8.2)
[2021-02-20 00:59] LABS: MICROSCOPIC AUTO
--- NOTE | 2021-02-20 01:13 | NUR ---
patient up for recheck
[2021-02-20 01:52] VITALS: BP 138/78
== END 2021-02-20 02:00 | disposition home or self-care (01) ==
LOC: ED 23:59
DX: M54.5 Low back pain (principal); I10 Essential (primary) hypertension; E11.9 Type 2 diabetes mellitus without complications; K21.9 Gastro-esophageal reflux disease without esophagitis; G43.909 Migraine, unspecified, not intractable, without status migrainosus
CPT/HCPCS: 36415; 80053; 81001; 83690; 85025; 99283